=== PATIENT | male | born 1945 | race Caucasian/White ===

== ENCOUNTER 2022-02-06 11:32 | Outpatient (CLI) | payer MEDICARE, SELFPAY ==
[2022-02-06 22:11] LABS: Albumin* 4.7 g/dL (3.3-5.0); Chloride* 98 mmol/L (96-114); Sodium* 136 mmol/L (135-149)
[2022-02-06 22:12] LABS: Potassium* 4.3 mmol/L (3.6-5.1)
[2022-02-06 22:14] LABS: Alanine Aminotransferase* 39 U/L (4-50); Alkaline Phosphatase* 60 U/L (40-150); Aspartate Amino Transferase* 43 U/L (12-35); Bilirubin Total* 0.9 mg/dL (0.1-1.5); Blood Urea Nitrogen* 16 mg/dL (7-30); Carbon Dioxide* 26 mmol/L (20-32); Creatinine* 0.9 mg/dL (0.5-1.5); Estimated Glomerular Filt Rate 89 ml/min; Glucose* 141 mg/dL (60-115); Total Protein* 7.4 g/dL (6.0-8.3)
[2022-02-06 22:15] LABS: Calcium* 9.8 mg/dL (8.4-10.6)
== END 2022-02-06 11:33 | disposition home or self-care (01) ==
LOC: FRMREF 11:32
PROVIDERS: PCP Surgery; Visit Provider Dermatology
DX: L30.9 Dermatitis, unspecified (principal); Z79.899 Other long term (current) drug therapy
CPT/HCPCS: 80053

== ENCOUNTER 2022-03-04 05:40 | Emergency (ER) | payer MEDICARE, SELFPAY ==
[2022-03-04 06:05] VITALS: BP 172/92; PULSE 75; RESP 16; TEMP 36.4; O2SAT 98; BMI 38.4
[2022-03-04 06:31] LABS: Basophils Absolute Auto 0.03 K/uL (0.00-0.30); Basophils Percent Auto 0.3 % (0.0-3.0); Eosinophils Absolute Auto 0.14 K/uL (0.00-0.50); Eosinophils Percent Auto 1.5 % (0.0-7.0); Hematocrit 43.8 % (37.0-53.0); Hemoglobin* 14.8 gm/dL (13.5-17.5); Immature Granulocytes Abs Auto 0.04 K/uL (0.00-0.30); Lymphocytes Percent Auto 11.4 % (20-44); Mean Corpuscular HGB Conc 34 gm/dL (32-36); Mean Corpuscular Hemoglobin 35 pg (26-34); Mean Corpuscular Volume 103 fL (80-100); Monocytes Percent Auto 7.8 % (0.0-11.0); Neutrophils Percent Auto 78.6 % (42.0-72.0); Platelet Count* 288 K/uL (140-440); RDW Coefficient of Variation % 14.2 % (11.5-15.5); Red Blood Count 4.26 m/uL (4.30-5.90); White Blood Count* 9.29 K/uL (4.50-11.00)
--- NOTE | 2022-03-04 06:34 | ED_ITS ---
HPI - Abdominal Pain General Time Seen by Provider: 06:34 Date Seen: 03/04/22 Chief Complaint: Abdominal Pain Stated Complaint: Severe abdominal pain Time Seen by Provider: 03/04/22 05:48 Source: patient, family, RN notes reviewed and old records reviewed Mode of arrival: ambulatory Limitations: no limitations History of Present Illness HPI narrative: Patient is a very pleasant 76-year-old gentleman with a history of hyperlipidemia, hypertension, obesity, appendectomy comes to the emergency room with right lower quadrant pain. Patient notes the sudden onset of this discomfort shortly after midnight. He has not taken anything for pain at this point. It is not associated with diarrhea but he does have some mild nausea. He notes that he has had some constipation over the past 3-4 weeks and has been treating that with senna and MiraLax. It has helped somewhat. He denies any trauma, recent illness, cough cold congestion. Walking seems to irritate the p ain. Related Data Home Medications Medication Instructions Recorded Confirmed aspirin 81 mg tablet,delayed 81 mg PO QDAY 02/06/22 03/04/22 release cetirizine 10 mg tablet (Zyrtec) 10 mg PO QDAY PRN 02/06/22 03/04/22 fluocinonide 0.05 % topical cream 1 applic topical BID 02/06/22 03/04/22 fluticasone propionate 50 1 spray intranasal QDAY 02/06/22 03/04/22 mcg/actuation nasal spray,suspension (Allergy Relief (fluticasone)) glimepiride 4 mg tablet 4 mg PO QAM 02/06/22 03/04/22 hydrochlorothiazide 25 mg tablet 25 mg PO QDAY 02/06/22 03/04/22 lansoprazole 15 mg capsule,delayed 15 mg PO QDAY 02/06/22 03/04/22 release latanoprost 0.005 % eye drops 1 drp ophthalmic (eye) QDAY 02/06/22 02/06/22 lisinopril 40 mg tablet 40 mg PO QDAY 02/06/22 03/04/22 metformin 1,000 mg tablet 1,000 mg PO BID 02/06/22 03/04/22 methotrexate sodium 2.5 mg tablet 2.5 mg PO QWEEK 02/06/22 03/04/22 simvastatin 20 mg tablet 20 mg PO QDAY 02/06/22 03/04/22 timolol 0.25 % eye drops 1 drp ophthalmic (eye) QDAY 02/06/22 03/04/22 zinc acetate 50 mg (zinc) capsule 50 mg PO QDAY 02/06/22 03/04/22 (Galzin) Previous Rx's Medication Instructions Recorded methotrexate sodium 2.5 mg tablet 20 mg PO QWEEK #32 tabs 02/06/22 Allergies Allergy/AdvReac Type Severity Reaction Status Date / Time No Known Drug Allergies Allergy Verified 02/06/22 11:24 Review of Systems Status of ROS Reports: 10 or more systems reviewed and unremarkable except as noted in History and below Const Denies: fever or chills Eyes Denies: change in vision ENMT Denies: throat pain or difficulty swallowing Cardio Denies: chest pain, palpitations or shortness of breath with exertion Resp Denies: shortness of breath or cough GI Reports: abdominal pain, nausea and constipation; Denies: vomiting, diarrhea, difficulty swallowing or blood in stool Denies: painful urination Musculo Denies: back pain Integ/Breast Denies: rash Neuro Denies: weakness in extremities [facility] Medical History Adenomatous colon polyp Benign prostatic hyperplasia without lower urinary tract symptoms Diastasis recti Eczema Essential (primary) hypertension Hyperlipidemia Obesity YARA (obstructive sleep apnea) Type 2 diabetes mellitus Unspecified glaucoma Venous insufficiency (chronic) (peripheral) Exam Narrative: Exam Narrative: Patient is alert and oriented. Nontoxic in appearance. Oral cavity with moist mucous membranes. Dentition is poor. Neck is supple. Heart with regular rate and rhythm and lungs are clear bilaterally. Abdomen is protuberant obese it is soft. He has some mild tenderness with palpation in the right lower quadrant. No rebound tenderness. Straight leg raise is negative. Lower extremities with 1+ edema. Const: Vital Signs, click to edit/add: Vital Signs - 24 hr 03/04/22 06:05 03/04/22 06:57 03/04/22 06:46 Temperature 97.6 F Pulse Rate [Left P ulse Oximeter] 75 Respiratory Rate 16 Blood Pressure [Le ft Upper Arm] 172/92 H Pulse Oximetry 98 94 97 Oxygen Delivery Me thod Room Air Room Air Oxygen Flow Rate 2 Course Course Hospital Course: Patient will have IV placed and pain medications including morphine 4 mg Zofran 4 mg and 1 L of normal saline given. Comprehensive panel, CBC, CRP, amylase, lipase ordered at this time. Urinalysis is also ordered. Differential diagnosis does include but is not limited to ureteral colic, kidney stone, diverticulitis, bowel obstruction, volvulus, urinary tract infection. Reevaluation(s) Reevaluation #1: Patient noted to have only mild relief with morphine. Will give him Dilaudid 0.5 mg IV. Vital Signs Vital signs: Initial Vital Signs Temperature 97.6 F 03/04/22 06:05 Temperature Source Temporal Artery Scan 03/04/22 06:05 Pulse Rate 75 03/04/22 06:05 Pulse Rhythm 03/04/22 06:05 Respiratory Rate 16 03/04/22 06:05 Blood Pressure 172/92 H 03/04/22 06:05 Blood Pressure Mean 118 03/04/22 06:05 Blood Pressure Position Standing 03/04/22 06:05 Pulse Oximetry 98 03/04/22 06:05 Oxygen Delivery Method 03/04/22 06:05 Vital Signs Temperature 97.6 F 03/04/22 06:05 Pulse Rate 75 03/04/22 06:05 Respiratory Rate 16 03/04/22 06:05 Blood Pressure 172/92 H 03/04/22 06:05 Pulse Oximetry 98 03/04/22 06:05 Oxygen Delivery Method 03/04/22 06:05 Temperature 97.6 F 03/04/22 06:05 Pulse Rate 75 03/04/22 06:05 Respiratory Rate 16 03/04/22 06:05 Blood Pressure 172/92 H 03/04/22 06:05 Pulse Oximetry 94 03/04/22 06:57 Oxygen Delivery Method 03/04/22 06:57 Oxygen Flow Rate 2 03/04/22 06:57 MDM - Abdominal Pain MDM Narrative Medical decision making narrative: 1. Abdominal pain-at this time awaiting CT of the abdomen. This case will be signed out to my partner Dr. Gregorio Saldivar for disposition. White count reassuring at 9.29 Medical Records Attestation: I reviewed the patient's medical records. Lab Data Attestation: I reviewed the patient's lab results. Labs: Lab Results 03/04/22 03/04/22 Range/Units 06:14 06:14 WBC 9.29 (4.50-11.00) K/uL RBC 4.26 L (4.30-5.90) m/uL Hgb 14.8 (13.5-17.5) gm/dL Hct 43.8 (37.0-53.0) % MCV 103 H (80-100) fL MCH 35 H (26-34) pg MCHC 34 (32-36) gm/dL RDW Coeff of Crissy 14.2 (11.5-15.5) % Plt Count 288 (140-440) K/uL Neut % (Auto) 78.6 H (42.0-72.0) % Lymph % (Auto) 11.4 L (20-44) % [place] % (Auto) 7.8 (0.0-11.0) % Eos % (Auto) 1.5 (0.0-7.0) % Baso % (Auto) 0.3 (0.0-3.0) % Neut # (Auto) 7.30 H (1.7-7.0) K/uL Lymph # (Auto) 1.10 (0.90-2.90) K/uL [place] # (Auto) 0.70 (0.00-0.90) K/UL Eos # (Auto) 0.14 (0.00-0.50) K/uL Baso # (Auto) 0.03 (0.00-0.30) K/uL Abs Immat Gran (auto) 0.04 (0.00-0.30) K/uL Sodium 138 (135-149) mmol/L Potassium 4.5 (3.6-5.1) mmol/L Chloride 99 (96-114) mmol/L Carbon Dioxide 26 (20-32) mmol/L BUN 13 (7-30) mg/dL Creatinine 1.1 (0.5-1.5) mg/dL Estimated Creat Clear 61.80 Estimated GFR 70 ml/min Glucose 209 H (60-115) mg/dL Calcium 10.1 (8.4-10.6) mg/dL Discharge Plan Discharge Prescriptions: No Action methotrexate sodium 2.5 mg tablet 2.5 mg PO QWEEK lisinopril 40 mg tablet 40 mg PO QDAY hydrochlorothiazide 25 mg tablet 25 mg PO QDAY simvastatin 20 mg tablet 20 mg PO QDAY cetirizine [Zyrtec] 10 mg tablet 10 mg PO QDAY PRN fluticasone propionate [Allergy Relief (fluticasone)] 50 mcg/actuation spray,suspension 1 spray intranasal QDAY Rx Instructions: administer into each nostril fluocinonide 0.05 % cream 1 applic topical BID aspirin 81 mg tablet,delayed release (DR/EC) 81 mg PO QDAY metformin 1,000 mg tablet 1,000 mg PO BID lansoprazole 15 mg capsule,delayed release(DR/EC) 15 mg PO QDAY latanoprost 0.005 % drops 1 drp ophthalmic (eye) QDAY timolol 0.25 % drops 1 drp ophthalmic (eye) QDAY glimepiride 4 mg tablet 4 mg PO QAM Rx Instructions: administer with breakfast Galzin 50 mg (zinc) capsule 50 mg PO QDAY methotrexate sodium 2.5 mg tablet 20 mg PO QWEEK Qty: 32 2RF Rx Instructions: Take 8 tabs one day per week. Follow Up/Referrals: Fuad Leonard MD [Primary Care Provider] -
[2022-03-04] MEDS: 0.9 % SODIUM CHLORIDE 1000 ml 1,000 ML IV (06:43)
[2022-03-04 06:46] VITALS: O2SAT 97
[2022-03-04] MEDS: ONDANSETRON 2 MG/ML inj 4 MG IVP (06:47)
[2022-03-04] MEDS: MORPHINE 4 MG/ML INJ IVP (06:47)
[2022-03-04 06:51] LABS: Chloride* 99 mmol/L (96-114); Potassium* 4.5 mmol/L (3.6-5.1); Sodium* 138 mmol/L (135-149)
--- OUTSIDE RECORDS SUMMARY | 2022-03-04 06:51 | XMS_ITS | Clinical Summary ---
:1945 Author Organization [employer] [facility] [place] [address] Care Team Providers Name Role Phone Fuad Leonard MD Primary Care Provider Allergies Active Allergy Reactions Severity Noted Date Comments Pollen Extracts Runny Nose 05/08/2021 Medications Medication Sig Dispensed Refills Start End Status Date Date MULTIVITAMIN CAP take one pill 0 01/17/20 Active daily 07 cetirizine (ZYRTEC) 10 Take 1 tablet 0 06/29/19 Active mg tablet by mouth once 10 daily. PRN sennosides (SENNA) 8.6 Take 2 tablets 0 06/29/20 Active mg tablet by mouth 2 10 times daily. Cholecalciferol, Take 1 tablet 0 06/09/19 Active Vitamin D3, (VITAMIN by mouth once 14 D-3) 5,000 unit tab daily. latanoprost (XALATAN) 1 Drop at 2.5 mL 0 07/12/19 Active 0.005 % ophthalmic bedtime. 17 solution fluticasone (50 mcg Inhale 1 [place] 1 Bottle 3 07/12/19 Active per actuation) nasal into both 18 solution nostrils once (FLONASE)Indications: daily. Allergic rhinitis due to pollen, unspecified chronicity, unspecified seasonality fluocinonide 0.05 APPLY 3 TIMES 5 08/30/19 Active TOPICAL (LIDEX) 0.05 % A DAY 18 external solution NEEDED dorzolamide-timolol INSTILL 1 DROP 4 04/01/20 Active (COSOPT) 2-0.5 % INTO BOTH EYES 18 ophthalmic solution TWICE A DAY aspirin (ECOTRIN) 81 Take 1 tablet 0 01/20/20 Active mg enteric coated by mouth once 19 tabletIndications: daily with a Type 2 diabetes meal. mellitus with microalbuminuria, without long-term current use of insulin (HC) CPAPIndications: YARA CPAP machine 1 Device 11 05/14/20 Active (obstructive sleep for home use 19 apnea) at pressure: 8.6 cm/H2O with epr of 3 , Heated humidifier x 1, Humidifier chamber x 1, Full face mask with cushion x 1, standard tubing x 1, Headgear x 1, Filters: Disposable x 1pk & Reusable x 1pk, Length of Need: 99 months, Frequency of use: Daily triamcinolone 0.025% 0 03/21/20 Active topical (ARISTOCORT) 21 0.025 % cream simvastatin (ZOCOR) 20 Take 1 Tablet 90 Tablet 3 08/11/19 Active mg tabletIndications: (20 mg) by 22 Hyperlipidemia, mouth once unspecified daily in the hyperlipidemia type evening. blood sugar diagnostic Dispense item 200 Each 08/11/19 Active (Debteyeuch Ultra Test) covered by pt 22 stripIndications: Type ins. E11.9 2 diabetes mellitus NIDDM type II with microalbuminuria, - Test 1 without long-term time/day current use of insulin (HC) glimepiride (AMARYL) 4 TAKE 1 TABLET 90 Tablet 2 09/30/19 Active mg tabletIndications: DAILY WITH A 22 Type 2 diabetes MEAL mellitus with microalbuminuria, without long-term current use of insulin (HC) lisinopriL (PRINIVIL; TAKE 1 TABLET 90 Tablet 2 09/30/19 Active ZESTRIL) 40 mg DAILY 22 tabletIndications: Essential hypertension hydroCHLOROthiazide TAKE 1 TABLET 90 Tablet 2 10/28/19 Active (HCTZ) 25 mg DAILY 22 tabletIndications: Essential hypertension metFORMIN (GLUCOPHAGE) Take 1 Tablet 180 Tablet 3 11/22/19 Active 1,000 mg (1,000 mg) by 22 tabletIndications: mouth in the Type 2 diabetes morning and 1 mellitus with Tablet (1,000 microalbuminuria, mg) in the without long-term evening. Take current use of insulin with meals. (HC) methotrexate TAKE 10 0 11/15/19 Active (RHEUMATREX) 2.5 mg TABLETS BY 22 tablet MOUTH EVERY 7 DAYS tacrolimus 0.1% 0 03/24/20 Disc ontinued (PROTOPIC) 0.1 % (*P atient ointment states no longer taking/Not on sending facility l ist) HYDROcodone-acetaminop 0 02/01/20 Discontinued hen (NORCO) 5-325 mg (*Patient per tablet states no longer taking/Not on sending facility l ist) polyethylene Take 4,000 mL 4000 mL 0 03/01/20 Exp ired glycol-electrolyte by mouth one 022 (GOLYTELY) time for 1 236-22.74-6.74 -5.86 dose. 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 Hyperlipidemia 12/22/2013 Diastasis recti 12/04/2011 Unspecified venous (peripheral) insufficiency 12/04/19 12 Eczema 12/12/2010 Obesity, unspecified 12/12/2010 Hypertrophy of prostate without urinary obstruction an d other lower 06/19/2010 urinary tract symptoms (LUTS) Unspecified glaucoma 01/02/2010 Unspecified essential hypertension 01/30/2007 Unspecified sleep apnea 01/30/2007 Resolved Problems Problem Noted Date Resolved Date Anal fissure 06/19/2010 12/22/2013 Pure hypercholesterolemia 01/30/2007 12/22/2013 Type II or unspecified type diabetes mellitus without 200501/10/2016 mention of complication, not stated as uncontrolled Encounters Date Type Specialty Care Team Description 02/26/2022 Office Visit Fuad Leonard Medicar e ANNUAL (subsequent) MD Visit (76 yr ol d male) 02/26/2022 Travel from Last 3 Months Immunizations Name Administration Dates Next Due AMB INFLUENZA IIV3 (AGE 65+ YRS) PF 03/14/2019, 03/08/2017 (Flu Clinic Only) AMB Influenza, IIV3 (Age >=3 03/25/2013, 03/16/2011, 010, years)(Flu Clinic Only) 03/04/2009 Amb Influenza, Inact (High-dose) (Flu 03/08/2016 Clinic Only) COVID-19 vaccine (Moderna 08/25/2020, 07/28/2020 100mcg/0.5mL) PF, MDV Influenza A (H1N1), Inactivated (Age 0206/29/2009 >=3 Years) Influenza, High-dose Inactivated 02/25/2015, 02/19/2014 Influenza, IIV3 (Age >=3 years) 04/10/2012, 03/30/2008 Influenza, IIV4 (=>6mos) MDV 01/24/2018 Influenza, Inactivated AIIV4 (Age 65+ 01/31/2021 Years) Preserv Free Influenza, Inactivated IIV3 (Age 65+ 02/25/2020 Years) Preserv Free Pneumococcal Poly,23-Valent 06/22/2014, 07/20/2008 (Pneumovax) Pneumococcal conj 13-Valent (Prevnar 06/27/2015 13) Tdap 07/12/2015 Zoster (Shingrix-RZV, recombinant) 03/28/2019, 01/07/2019 Zoster (Zostavax-ZVL, live) 08/01/2011 Family History Medical History Relation Name Comments Pulmonary embolism Father at 49 Cancer-breast Mother Heart failure Mother at 89 Cancer-colon No Family History Cancer-prostate No Family History Diabetes No Family History Relation Name Status Comments Father (Age 49) PE Mother (Age 89) CHF Social History Tobacco Use Types Packs/Day Years Used Date Former Smoker Pipe Smokeless Tobacco: Never Used Tobacco Cessation: Counseling Given: Yes Comments: pipe maybe once or twice a yea r Alcohol Use Standard Drinks/Week Comments Yes 14 (1 standard drink = 0.6 oz pure alcoh ol) couple drinks/beers a day Alcohol Habits Answer Date Recorded How often do you have a drink containing 4 or more times a w lower elwha 10/21/2018 alcohol? How many drinks containing alcohol do you have 1 or 2 10/21/2018 on a typical day when you are drinking? How often do you have six or more drinks on one Never 10/21/2018 occasion? Comment: Not asked Sex Assigned at Date Recorded Not on file COVID-19 Exposure Response Date Recorded In the last 10 days, have you been in contact with No / Unsu re 02/26/2022 12:59 PM CDT someone who was confirmed or suspected to have Coronavirus/COVID-19? Obstetrics History Last Filed Vital Signs Vital Sign Reading Time Taken Comments Blood Pressure 125/83 02/26/2022 1:20 PM CDT Pulse 77 02/26/2022 1:20 PM CDT Temperature 37 ??C (98.6 ??F) 10/27/2020 11:12 AM CDT Respiratory Rate 16 04/07/2018 1:43 PM [employer]PER[employer] HELPER Oxygen Saturation 97% 02/26/2022 1:20 PM CDT Inhaled Oxygen Concentration - - Weight 124.5 kg (274 lb 6.4 oz) 02/26/2022 1:20 PM CDT Height 179.8 cm (5' 10.79) 02/26/2022 1:20 PM CDT Body Mass Index 38.5 02/26/2022 1:20 PM CDT Plan of Treatment Upcoming Encounters Date Type Specialty Care Team Description 05/31/2022 Office Visit Fuad Leonard MD [address] [place], [place] [address] (Wo rk) Health Maintenance Due Date Last Done Comments COVID-19 vaccine series (5 - 01/10/2022 11/15/2021, 021, Booster for Moderna series) 08/25/2020, Addition al history exists Influenza for age 65+ 01/25/2022 01/31/2021, 02/25/2020, 03/14/2019, Additional history exists Colonoscopy through age 75 02/05/2022 02/05/2017, 7, 02/05/2017, Additional history exists BMI (ht and wt on same day) for 02/26/2023 02/26/2022, 09/11/2020, age 18+ 07/21/2020, Additional history exists Depression screening for age 12+ 02/26/2023 02/26/2022, 11/2020, 01/30/2021, Additional history exists Medicare Wellness for age 65+ 02/26/2023 02/26/2022, 2020, 01/11/2020, Additional history exists Tetanus booster 07/12/2025 07/12/2015, 01/02/2006 Lipids for age 45-75 02/26/2027 02/26/2022, 01/31/2021, 01/11/2020, Additional history exists Pneumococcal series for age 65+ Completed 06/27/2015, 05/28, 12/01/2008 (Completed outside of [facility]), Additional history exists Tdap Completed 07/12/2015, 07/12/2015 Hepatitis C screening for age Completed 01/10/2017 18-79 AAA screening age 55-77 Completed 01/27/2019 Zoster (shingles) series for age Completed 03/28/2019, , 50+ 08/01/2011 Procedures Procedure Name Priority Date/Time Associated Diagnosis Comme nts URINE ALBUMIN TO Routine 02/26/2022 1:11 PM Type 2 diabetes Re sults for this CREATININE RATIO, CDT mellitus with procedure are in RANDOM microalbuminuria, the result s without long-term section. current use of insulin (HC) PSA TOTAL SCREEN Add On 02/26/2022 1:09 PM Screening for pros andrea Results for this CDT cancer procedure are i n the results section. BASIC METABOLIC Routine 02/26/2022 1:09 PM Essential hypertens ion Results for this PANEL CDT procedure are i n the results section. LIPID PANEL Routine 02/26/2022 1:09 PM Hyperlipidemia, Result s for this CDT unspecified procedure are i n hyperlipidemia type the resu lts section. HEMOGLOBIN A1C Routine 02/26/2022 1:09 PM Type 2 diabetes Resu lts for this CDT mellitus with procedure are in microalbuminuria, the result s without long-term section. current use of insulin (HC) from Last 3 Months Results (ABNORMAL) URINE ALBUMIN TO CREATININE RATIO, RANDOM (02/26/2022 1:11 PM CDT) [facility] gist Method Time Signature ALB RAND URINE 251.9 mg/L 02/27/2022 [facility] 1:26 PM CDT [facility] CREATININE,URIN 1.03 g/L 02/27/2022 [facility] 1:26 PM CDT [facility] ALBUMIN TO 244.6 (H) <30.0 02/27/2022 [facility] CREATININE mg/g 1:26 PM CDT LAB[facility]ATORY-[facility] RATIO,RAND UR creat TRAL LABORATORY Specimen Anatomical Collection Method Collection Time Receive d Time (Source) Location / / Volume Laterality Urine URINE SPECIMEN / Non-Blood / 02/26/2022 1:11 PM 02/26 1:11 Unknown Unknown CDT PM CDT Narrative [facility] LABORATORY-CENTRAL LABORAT ORY - 02/27/2022 1:26 PM CDT If Albumin to Creatinine Ratio is elevated, consider the following: ? Elevations seen with incipient nephr opathy associated ?? with diabetes mellitus or hypertensi on. Stress, exercise, ?? hematuria, and urinary tract infecti on may also produce ?? elevated results. If clinically marc cated, confirm with ?? 24 Hour Albumin to Creatinine Ratio. Fuad Leonard MD URINE Performing Organization Address City/State/ZIP Code Phon e Number [facility] [address] [place] [address] LABORATORY-CENTRAL 2000 LABORATORY (ABNORMAL) HEMOGLOBIN A1C MONITORING (POCT) (02/26/2022 1:09 PM CDT) Analysis Performed At Patho logist Time Signature HEMOGLOBIN A1C 6.7 (H) <=6.4 % 02/26/2022 [facility] MONITORING 1:19 PM CDT [place] (POCT) [facility] Specimen Anatomical Collection Method / Collection Time Recei emperatriz Time (Source) Location / Volume Laterality Blood BLOOD SPECIMEN / Venipuncture / 02/26/2022 1:09 2021 1:10 Unknown Unknown PM CDT PM CDT Narrative [facility] - 2021 1:19 PM CDT ? (<=6.9%) ? Indicates good control ? (7.0% to 7.9%) ? Indicates fa ir control ? (>=8.0%) ? Indicates poor control ?? NOTE: ??These thresholds are guideli bianca and ?individual targets may va ry. Falsely low levels may be seen with: Recent Transfusion, Recent Significant B lood Loss, Hemolytic Diseases, or Falsely elevated levels may be seen with : Untreated Anemias, Splenectomy ? Fuad Leonard MD CHEMISTRY Performing Organization Address City/State/ZIP Code Phon e Number [facility] [address] [place] [address] (ABNORMAL) LIPID PANEL (02/26/2022 1:09 PM CDT) [facility] gist Method Time Signature CHOLESTEROL,TOTAL 128 100 - 199 02/27/2022 [facility] mg/dL 2:00 PM CDT [facility] TRIGLYCERIDES 185 (H) <150 02/27/2022 [facility] mg/dL 2:00 PM CDT [facility] HDL CHOLESTEROL 45 >40 mg/dL 02/27/2022 [facility] 2:00 PM CDT [facility] NON-HDL 83 <145 02/27/2022 [facility] CHOLESTEROL mg/dl 2:00 PM CDT [facility] CHOL/HDL RATIO 2.84 <4.50 02/27/2022 [facility] 2:00 PM CDT [facility] LDL CHOLESTEROL 46 <=130 02/27/2022 [facility] mg/dL 2:00 PM CDT [facility] VLDL CHOLESTEROL 37 (H) <=30 02/27/2022 [facility] mg/dL 2:00 PM CDT [facility] PROVIDER ORDERED RANDOM 02/27/2022 [facility] STATUS 2:00 PM CDT [facility] Specimen Anatomical Collection Method / Collection Time Recei emperatriz Time (Source) Location / Volume Laterality Blood BLOOD SPECIMEN / Venipuncture / 02/26/2022 1:09 2021 1:10 Unknown Unknown PM CDT PM CDT Fuad Leonard MD CHEMISTRY Performing Organization Address City/State/ZIP Code Phon e Number [facility] [address] [place] [address] LABORATORY-CENTRAL 2000 LABORATORY [facility] [address] [place], [place] [address] , CLINIC (ABNORMAL) BASIC METABOLIC PANEL (02/26/2022 1:09 PM CDT) Analysis Performed At Path logist Time Signature SODIUM 139 135 - 145 02/27/2022 [facility] mmol/L 1:58 PM CDT [facility] POTASSIUM 4.1 3.5 - 5.0 02/27/2022 [facility] mmol/L 1:58 PM CDT [facility] CHLORIDE 102 98 - 110 02/27/2022 [facility] mmol/L 1:58 PM CDT [facility] CO2,TOTAL 26 21 - 31 02/27/2022 [facility] mmol/L 1:58 PM CDT [facility] ANION GAP 11 5 - 18 02/27/2022 [facility] 1:58 PM CDT [facility] GLUCOSE 154 (H) 65 - 100 02/27/2022 [facility] mg/dL 1:58 PM CDT [facility] CALCIUM 9.8 8.5 - 10.5 02/27/2022 [facility] mg/dL 1:58 PM CDT [facility] BUN 13 8 - 25 02/27/2022 [facility] mg/dL 1:58 PM CDT [facility] CREATININE 0.88 0.72 - 02/27/2022 [facility] 1.25 mg/dL 1:58 PM CDT [facility] BUN/CREAT RATIO 15 10 - 20 02/27/2022 [facility] 1:58 PM CDT [facility] eGFR 90 (L) >90 02/27/2022 [facility] mL/min/1.7 1:58 PM CDT LAB[facility]ATORY-[facility] 3m2 TRAL LABORATORY Comment: As of 2021, eGFR is calcu lated by the CKD-EPI creatinine equation without race adjustment. eGFR can be inf luenced by muscle mass, exercise, and diet. The reported eGFR is an estimation only and is only applicable if the renal function is stable. Specimen Anatomical Collection Method / Collection Time Recei emperatriz Time (Source) Location / Volume Laterality Blood BLOOD SPECIMEN / Venipuncture / 02/26/2022 1:09 2021 1:10 Unknown Unknown PM CDT PM CDT Fuad Leonard MD CHEMISTRY Performing Organization Address City/State/ZIP Code Phon e Number [facility] [address] [place] [address] LABORATORY-CENTRAL 2000 LABORATORY PSA TOTAL SCREEN (02/26/2022 1:09 PM CDT) P athologist Signature PSA TOTAL 2.36 <4.00 02/27/2022 [facility] (SCREEN) ng/mL 2:21 PM CDT LABORATORY-[facility] LABOR[facility]ORY Specimen Anatomical Collection Method / Collection Time Recei emperatriz Time (Source) Location / Volume Laterality Blood BLOOD SPECIMEN / Venipuncture / 02/26/2022 1:09 2021 1:10 Unknown Unknown PM CDT PM CDT Narrative [facility] LABORATORY-CENTRAL LABORAT ORY - 02/27/2022 2:21 PM CDT The Self Under Presser PSA assay is a Chemiluminescent Microparticle Immunoassay(CMIA). Assay values ob tained with different assay methods carlos ot be used interchangeably due to differences in assay methods and reagent specificity. Fuad Leonard MD LABORATORY Performing Organization Address City/State/ZIP Code Phon e Number [facility] [address] [place] [address] LABORATORY-CENTRAL [address] LABORATORY from Last 3 Months Insurance Payer Benefit Plan / Subscriber ID Effective Dates Phone Addre ss Type Group MEDICA MR MEDICA ADVANTAGE [id number] 2020-Present MEDIC A [place] [employer] [address] [address] [place] [phone] Care Teams Bone Char Puller Relationship Specialty Start Date End Date Fuad Leonard MD PCP - General Family Practice 01/04/[address] [place] [address]
[2022-03-04 06:54] LABS: Blood Urea Nitrogen* 13 mg/dL (7-30); Calcium* 10.1 mg/dL (8.4-10.6); Carbon Dioxide* 26 mmol/L (20-32); Creatinine* 1.1 mg/dL (0.5-1.5); Estimated Glomerular Filt Rate 70 ml/min; Glucose* 209 mg/dL (60-115)
[2022-03-04 06:57] VITALS: O2SAT 94
[2022-03-04 06:59] LABS: Slide Review Reflex No
[2022-03-04 07:56] LABS: Appearance Urine Slightly Cloudy (Clear); Bilirubin Urine Negative (Negative); Blood Urine 3+ (Negative); Color Urine Amber (Yellow); Glucose Urine Trace (Negative); Ketones Urine 2+ (Negative); Leukocyte Esterase Urine Negative (Negative); Nitrite Urine Negative (Negative); Protein Urine 2+ (Negative); Specific Gravity Urine >= 1.030 (1.000-1.030); Urobilinogen Urine 0.2 (0.2-1.0); pH Urine 5.5 (5.0-8.5)
--- NOTE | 2022-03-04 08:15 | CRLHL7_ITS ---
For Patients: As a result of the Century Cures Act, medical imaging exams and procedure reports are released immediately into your electronic medical record. You may view this report before your referring provider. If you have questions, please contact your health care provider. Indication: Right lower quadrant pain Technique: Noncontrast CT of the abdomen pelvis Please note that all CT scans at this facility use dose modulation, iterative reconstruction, and/or weight-based dosing when appropriate to reduce radiation dose to as low as reasonably achievable. Comparison: None Findings: Normal heart size. Pericardial effusion. Bibasilar. Unremarkable liver and gallbladder. No significant abnormality of the adrenal glands, spleen, pancreas or duodenum. Simple left renal cysts. Mild right-sided hydronephrosis. There is a 6 millimeter right ureteral calculus (series 2, image 105). Normal course and caliber of the abdominal aorta and IVC. Moderate atherosclerotic disease of the abdominal aorta. No lymphadenopathy. Prostate is enlarged. Bladder is unremarkable. Diverticulosis without diverticulitis. No bowel obstruction. No bowel wall thickening. Small fat containing bilateral inguinal hernias. No acute osseous abnormality. Impression: There is a 6 millimeter mid right ureteral calculus with associated mild right-sided hydronephrosis. Please note that all CT scans at this facility use dose modulation, iterative reconstruction, and/or weight-based dosing when appropriate to reduce radiation dose to as low as reasonably achievable. Dictated by Corey Spencer MD @ 03/04/2022 9:10:16 AM (Electronically Signed)
[2022-03-04 08:36] LABS: Bacteria Urine Few; RBC Urine 50-100 (0-2); Squamous Epithelial Cell Urine Few (None-Few); WBC Urine 0-2 (0-5)
[2022-03-04] MEDS: HYDROmorphone 0.5 mg/0.5 ml inj IVP (08:40)
[2022-03-04 09:15] VITALS: BP 168/82; PULSE 72; RESP 18; TEMP 36.6; O2SAT 94
[2022-03-04 16:07] LABS: Albumin* 4.7 g/dL (3.3-5.0)
[2022-03-04 16:09] LABS: Amylase* 70 U/L (18-89)
[2022-03-04 16:10] LABS: Alanine Aminotransferase* 34 U/L (4-50); Alkaline Phosphatase* 60 U/L (40-150); Aspartate Amino Transferase* 45 U/L (12-35); Bilirubin Direct* 0.2 mg/dL (0.0-0.5); Bilirubin Total* 0.6 mg/dL (0.1-1.5); Lipase* 161 U/L (23-300); Total Protein* 7.9 g/dL (6.0-8.3)
[2022-03-04 16:15] LABS: C Reactive Protein* < 0.5 mg/dL (0.5-1.0)
== END 2022-03-04 10:04 | disposition home or self-care (01) ==
PROVIDERS: Family Medicine; Emergency Provider Family Medicine; PCP Surgery
DX: R10.9 Unspecified abdominal pain (principal); R11.0 Nausea
CPT/HCPCS: 36415; 74176; 80048; 80053; 80076; 81001; 82150; 83605; 83690; 85025; 86140; 87086; 94761; 96374; 96375; 99284; J1170; J2270; J2405; J7030

== ENCOUNTER 2022-03-08 08:52 | Outpatient (CLI) | payer MEDICARE, SELFPAY ==
--- OUTSIDE RECORDS SUMMARY | 2022-03-08 09:00 | XMS_ITS | Clinical Summary ---
:1945 Author Organization [employer] [place] [address] Care Team Providers Name Role Phone Fuad [...] 17 solution fluticasone (50 mcg Inhale 1 [place] 1 Bottle 3 07/12/19 Active per actuation) [...] blood sugar diagnostic Dispense item 200 Each 3 08/11/19 Active ([employer] plcuch Ultra Test) covered by pt 22 stripIndications: [...] BY 22 tablet MOUTH EVERY 7 DAYS ondansetron (ZOFRAN) 4 TAKE 1 TABLET 0 03/04/20 Active mg tablet BY MOUTH EVERY 22 6 HOURS NEEDED FOR NAUSEA OR VOMITING oxyCODONE-acetaminophe Take by mouth 0 03/04/20 Active n (PERCOCET) 5-325 mg every 6 hours 22 per tablet if needed. tamsulosin (FLOMAX) TAKE 1 CAPSULE 0 03/04/20 Active 0.4 mg capsule BY MOUTH DAILY 22 FOR URETERAL COLIC tacrolimus 0.1% 0 03/24/20 Disc ontinued (PROTOPIC) 0.1 % 022 (*P atient ointment states no longer taking/Not on sending facility l ist) HYDROcodone-acetaminop 0 02/01/20 Discontinued hen (NORCO) 5-325 mg 21 022 (*Patient per tablet states no longer taking/Not [...] Encounters Date Type Specialty Care Team Description 03/07/2022 Office Visit Deanne Bennett Consti pation PA (Saturday/ y morning- started to loss en up ); Hospital F/U (1 0 ER [facility] ) 03/06/2022 Travel 03/06/2022 Nurse Triage Fuad Leonard MD Cons tipation 03/06/2022 Telephone Fuad Leonard MD [facility] Management 03/04/2022 Orders Only Scanner <No scans attac hed> 02/26/2022 Office Visit Fuad Leonard MD [facility] ANNUAL (subsequent) Visit (76 yr ol d male) 02/26/2022 [...] containing 4 or more times a w [place] 10/21/2018 alcohol? How many drinks containing alcohol [...] in contact with No / Unsu re 03/06/2022 9:17 PM CDT someone who was confirmed or suspected to have Coronavirus/COVID-19? Obstetrics History Last Filed Vital Signs Vital Sign Reading Time Taken Comments Blood Pressure 160/90 03/07/2022 8:51 AM CDT Pulse 86 03/07/2022 8:51 AM CDT Temperature 36.7 ??C (98 ??F) 03/07/2022 8:51 AM CDT Respiratory Rate 16 04/07/2018 1:43 PM INSURANCE CASE MANAGER Oxygen Saturation 96% 03/07/2022 8:51 AM CDT Inhaled Oxygen Concentration - - Weight 126.6 kg (279 lb) 03/07/2022 8:51 AM CDT Height 179.8 cm (5' 10.79) 02/26/2022 1:20 PM CDT Body Mass Index 39.15 02/26/2022 1:20 PM CDT Plan of Treatment Upcoming Encounters Date Type Specialty Care Team Description 05/31/2022 Office Visit Fuad Leonard MD [address] [phone] (Wo rk) Health Maintenance Due Date Last Done Comments COVID-19 vaccine series (5 - 01/10/2022 11/15/2021, 021, Booster for Moderna series) 08/25/2020, Addition al history exists Influenza for age 65+ 01/25/2022 01/31/2021, 02/25/2020, 03/14/2019, Additional history exists Colonoscopy through age 75 02/05/2022 02/05/2017, 7, 02/05/2017, Additional history exists BMI (ht and wt on same day) for 02/26/2023 02/26/2022, 0911/2020, age 18+ 07/21/2020, Additional history exists Depression screening for age 12+ 02/26/2023 02/26/2022, 11/2020, 01/30/2021, Additional history exists Medicare Wellness for age 65+ 02/26/2023 02/26/2022, 2020, 01/11/2020, Additional history exists Tetanus booster 07/12/2025 07/12/2015, 01/02/2006 Lipids for age 45-75 02/26/2027 02/26/2022, 01/31/2021, 01/11/2020, Additional history exists Pneumococcal series for age 65+ Completed 06/27/2015, 05/28, 12/01/2008 (Completed outside of [facility], [place]), Additional history exists Tdap Completed 07/12/2015, 07/12/2015 Hepatitis C screening for age Completed 01/10/2017 18-79 AAA screening age 55-77 Completed 01/27/2019 Zoster (shingles) series for age Completed 03/28/2019, , 50+ 08/01/2011 Procedures Procedure Name Priority Date/Time Associated Diagnosis Comme nts SCAN-CT INTERPRETATION 03/04/2022 12:00 AM CDT URINE ALBUMIN TO Routine 02/26/2022 1:11 Type 2 diabetes Resul ts for this CREATININE RATIO, PM CDT mellitus with procedure are in RANDOM microalbuminuria, the result s without long-term section. current use of insulin (HC) PSA TOTAL SCREEN Add On 02/26/2022 1:09 Screening for Results for this PM CDT prostate cancer procedure ar e in the results section. BASIC METABOLIC PANEL Routine 02/26/2022 1:09 Essential Res ults for this PM CDT hypertension procedure are i n the results section. LIPID PANEL Routine 02/26/2022 1:09 Hyperlipidemia, Results f or this PM CDT unspecified procedure are i n hyperlipidemia type the resu lts section. HEMOGLOBIN A1C Routine 02/26/2022 1:09 Type 2 diabetes Results for this PM CDT mellitus with procedure are in microalbuminuria, the result s without long-term section. current use of insulin (HC) from Last 3 Months Results SCAN-CT INTERPRETATION (03/04/2022 12:00 AM CDT) Narrative This result has an attachment that is no t available. Scanner OTHER (ABNORMAL) URINE ALBUMIN TO CREATININE RATIO, RANDOM (02/26/2022 1:11 PM CDT) [facility] gist Method Time Signature ALB RAND URINE 251.9 mg/L [facility] CREATININE,URIN 1.03 g/L 02/27/2022 [facility] 1:26 PM CDT [facility] ALBUMIN TO 244.6 (H) <30.0 02/27/2022 [facility] V I O CREATININE mg/g 1:26 PM CDT LABORATORY-[facility] RATIO,RAND UR creat TRAL LABORATORY Specimen Anatomical Collection Method Collection Time Receive d Time (Source) Location / / Volume Laterality Urine URINE SPECIMEN / Non-Blood / 02/26/2022 1:11 PM 02/26 1:11 Unknown Unknown CDT PM CDT Narrative [facility] LABORATORY-CENTRAL LABORAT ORY - 02/27/2022 1:26 PM [...] Organization Address City/State/ZIP Code Phon e Number [facility] [address] [place] [address] LABORATORY-CENTRAL 1999 LABORATORY (ABNORMAL) HEMOGLOBIN A1C MONITORING (POCT) (02/26/2022 1:09 PM CDT) Analysis Performed At [facility] logist Time Signature HEMOGLOBIN A1C 6.7 (H) <=6.4 % 02/26/2022 [facility] V I O MONITORING 1:19 PM CDT [place] (POCT) [facility] Specimen Anatomical Collection Method / Collection Time Recei emperatriz Time (Source) Location / Volume Laterality Blood BLOOD SPECIMEN / Venipuncture / 02/26/2022 1:09 2021 1:10 Unknown Unknown PM CDT PM CDT Narrative [facility] - 2021 1:19 PM CDT ? [...] Organization Address City/State/ZIP Code Phon e Number [facility] [address] [place], [place] [id number] (ABNORMAL) LIPID PANEL (02/26/2022 1:09 PM CDT) [facility] gist Method Time Signature CHOLESTEROL,TOTAL 128 [...] TRAL LABORATORY CHOL/HDL RATIO 2.84 <4.50 02/27/2022 [facility] 2:00 PM CDT [facility] TRAL [facility] LDL CHOLESTEROL 46 <=130 02/27/2022 [facility] mg/dL 2:00 PM CDT [facility]AT[facility] TRAL LABORATORY VLDL CHOLESTEROL 37 (H) <=30 02/27/2022 [facility] mg/dL 2:00 PM CDT [facility] TRAL LABORAT[facility] PROVIDER ORDERED RANDOM 02/27/2022 [facility] STATUS 2:00 PM CDT [facility] Specimen Anatomical Collection Method / Collection Time Recei emperatriz Time (Source) Location / Volume Laterality Blood BLOOD SPECIMEN / Venipuncture / 02/26/2022 1:09 2021 1:10 Unknown Unknown PM CDT PM CDT Fuad Leonard MD CHEMISTRY Performing Organization Address City/State/ZIP Code Phon e Number [facility] [address] [place] [address] LABORATORY-CENTRAL 2000 LABORATORY [facility] [address] [place], [place] [address], [place] [phone] CLINIC (ABNORMAL) BASIC METABOLIC PANEL (02/26/2022 1:09 PM CDT) Analysis Performed At Patho logist Time Signature SODIUM 139 135 - 145 02/27/2022 [facility] mmol/L 1:58 PM CDT [facility] TR[facility] LAB[facility]ORY POTASSIUM 4.1 3.5 - 5.0 02/27/2022 [facility] mmol/L 1:58 PM CDT [facility] TR[facility]OR[facility] CHLORIDE 102 98 - 110 02/27/2022 [facility] mmol/L 1:58 PM CDT [facility] TR[facility] CO2,TOTAL 26 21 - 31 02/27/2022 [facility] mmol/L 1:58 PM CDT [facility] TRAL LABOR[facility] ANION GAP 11 5 - 18 02/27/2022 [facility] 1:58 PM CDT [facility] TRAL LABORATORY GLUCOSE 154 (H) 65 - 100 02/27/2022 [facility] mg/dL 1:58 PM CDT [facility] TR[facility] CALCIUM 9.8 8.5 - 10.5 02/27/2022 [facility] mg/dL 1:58 PM CDT [facility] BUN 13 8 - 25 02/27/2022 [facility] mg/dL 1:58 PM CDT [facility] CREATININE 0.88 0.72 - 02/27/2022 [facility] 1.25 mg/dL 1:58 PM CDT [facility] BUN/CREAT RATIO 15 10 - 20 02/27/2022 [facility] 1:58 PM CDT [facility] TR[facility] LABORATORY eGFR 90 (L) >90 02/27/2022 [facility] V I O mL/min/1.7 1:58 PM CDT LABORATORY-[facility] 3m2 TRAL [...] Organization Address City/State/ZIP Code Phon e Number [facility] [address] [place] [id number] LABORATORY-CENTRAL 2000 LABORATORY PSA TOTAL SCREEN (02/26/2022 1:09 PM CDT) P athologist Signature PSA TOTAL 2.36 <4.00 02/27/2022 [facility] (SCREEN) ng/mL 2:21 PM CDT LABORATORY-[facility] LABORATORY Specimen Anatomical Collection Method / Collection Time Recei emperatriz Time (Source) Location / Volume Laterality Blood BLOOD SPECIMEN / Venipuncture / 02/26/2022 1:09 2021 1:10 Unknown Unknown PM CDT PM CDT Narrative [facility] LABORATORY-CENTRAL LABORAT ORY - 02/27/2022 2:21 PM CDT The [employer] PSA assay is a Chemiluminescent Microparticle Immunoassay(CMIA). Assay values ob tained with different assay methods carlos ot be used interchangeably due to differences in assay methods and reagent specificity. Fuad Leonard MD LABORATORY Performing Organization Address City[place]State[place] [facility] [place] [facility] [address] [place] [id number] LABORATORY-CENTRAL 2000 LABORATORY from Last 3 Months Insurance Payer Benefit Plan / Subscriber ID Effective Dates Phone Addre ss Type Group MEDICA MR MEDICA ADVANTAGE [id number] 2020-Present MEDIC A GOVERNMENT [place] [address] [address] [place] [phone] Care Teams Manager Placement Relationship Specialty Start Date End Date Fuad Leonard MD PCP - General Family Practice 01/04/17 [address] [place] [address]
== END 2022-03-08 08:53 | disposition home or self-care (01) ==
LOC: OP CLINIC 08:53
PROVIDERS: PCP Surgery; Visit Provider Surgery
DX: Z12.11 Encounter for screening for malignant neoplasm of colon (principal); K63.5 Polyp of colon; K57.30 Diverticulosis of large intestine without perforation or abscess without bleeding; K62.4 Stenosis of anus and rectum; Z86.010 Personal history of colon polyps
CPT/HCPCS: 45385; 88305; 99153; J1200; J2250; J3010

== ENCOUNTER 2022-05-08 08:37 | Outpatient (CLI) | payer OTHER, SELFPAY ==
--- OUTSIDE RECORDS SUMMARY | 2022-05-08 13:29 | XMS_ITS | Clinical Summary ---
:1945 Author Organization [facility] [employer] [facility] [address] Care Team Providers Name Role Phone Fuad Leonard MD Primary Care Provider Allergies Active Allergy Reactions Severity Noted Date Comments Pollen Extracts Runny Nose 05/08/2021 Medications Medication Sig Dispensed Refills Start Date End Date Status MULTIVITAMIN CAP take one pill 0 01/16/2007 Active daily cetirizine (ZYRTEC) 10 mg Take 1 tablet 0 06/29/2009 Active tablet by mouth once daily. PRN sennosides (SENNA) 8.6 mg Take 2 tablets 0 0 Active tablet by mouth 2 times daily. Cholecalciferol, Vitamin Take 1 tablet 0 06/09/2013 Active D3, (VITAMIN D-3) 5,000 by mouth once unit tab daily. latanoprost (XALATAN) 1 Drop at 2.5 mL 0 07/12/2016 Active 0.005 % ophthalmic bedtime. solution fluticasone (50 mcg per Inhale 1 [place] 1 Bottle 3 07/12/2017 Active actuation) nasal solution into both (FLONASE)Indications: nostrils once Allergic rhinitis due to daily. pollen, unspecified chronicity, unspecified seasonality fluocinonide 0.05 TOPICAL APPLY 3 TIMES A 5 08/30/19 18 Active (LIDEX) 0.05 % external DAY NEEDED solution dorzolamide-timolol INSTILL 1 DROP 4 04/01/2018 Active (COSOPT) 2-0.5 % INTO BOTH EYES ophthalmic solution TWICE A DAY aspirin (ECOTRIN) 81 mg Take 1 tablet 0 01/19/2019 Active enteric coated by mouth once tabletIndications: Type 2 daily with a diabetes mellitus with meal. microalbuminuria, without long-term current use of insulin (HC) CPAPIndications: YARA CPAP machine 1 Device 11 05/14/2019 Active (obstructive sleep apnea) for home use at pressure: 8.6 cm/H2O with epr of 3 , Heated humidifier x 1, Humidifier chamber x 1, Full face mask with cushion x 1, standard tubing x 1, Headgear x 1, Filters: Disposable x 1pk & Reusable x 1pk, Length of Need: 99 months, Frequency of use: Daily triamcinolone 0.025% 0 03/21/2021 Active topical (ARISTOCORT) 0.025 % cream simvastatin (ZOCOR) 20 mg Take 1 Tablet 90 Tablet 3 08/10/2021 Active tabletIndications: (20 mg) by Hyperlipidemia, mouth once unspecified daily in the hyperlipidemia type evening. 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, without Test 1 time/day long-term current use of insulin (HC) glimepiride (AMARYL) 4 mg TAKE 1 TABLET 90 Tablet 2 09/29/2021 Active tabletIndications: Type 2 DAILY WITH A diabetes mellitus with MEAL microalbuminuria, without long-term current use of insulin (HC) lisinopriL (PRINIVIL; TAKE 1 TABLET 90 Tablet 2 09/29/2021 Active ZESTRIL) 40 mg DAILY tabletIndications: Essential hypertension hydroCHLOROthiazide TAKE 1 TABLET 90 Tablet 2 10/27/2021 Active (HCTZ) 25 mg DAILY tabletIndications: Essential hypertension metFORMIN (GLUCOPHAGE) Take 1 Tablet 180 Tablet 3 11/21/2021 Active 1,000 mg (1,000 mg) by tabletIndications: Type 2 mouth in the diabetes mellitus with morning and 1 microalbuminuria, without Tablet (1,000 long-term current use of mg) in the insulin (HC) evening. Take with meals. methotrexate (RHEUMATREX) TAKE 10 TABLETS 0 11/15/19 22 Active 2.5 mg tablet BY MOUTH EVERY 7 DAYS ondansetron (ZOFRAN) 4 mg TAKE 1 TABLET 0 03/04/2022 Active tablet BY MOUTH EVERY 6 HOURS NEEDED FOR NAUSEA OR VOMITING oxyCODONE-acetaminophen Take by mouth 0 03/04/2022 Active (PERCOCET) 5-325 mg per every 6 hours tablet if needed. tamsulosin (FLOMAX) 0.4 TAKE 1 CAPSULE 0 03/04/2022 Active mg capsule BY MOUTH DAILY FOR URETERAL COLIC Active Problems Problem Noted Date YARA 09/23/2003 [...] Encounters Date Type Specialty Care Team Description 03/12/2022 Orders Only Fuad Leonard, 1 scan: (1-Ord) [facility] [place] 03/09/2022 Lab Requisition Julianne Goldman MD 03/07/2022 Office Visit Deanne Bennett Consti pation PA (Saturday/ y morning- started to loss en up ); Hospital F/U (1 0 ER [facility] ) 03/06/2022 Travel 03/06/2022 Nurse Triage Fuad Leonard Constip ation MD 03/06/2022 Telephone Fuad Leonard Medicat ion Management 03/04/2022 Orders Only Scanner 1 scan: (1-Ord) [place], [place] PELVIS, 022 02/26/2022 Office Visit Fuad Leonard Medicar e ANNUAL MD (subsequent) Vi sit (76 yr old male) 02/26/2022 Travel from Last 3 Months [...] Tobacco Use Types Packs/Day Years Used Date Smoking Tobacco: Former Pipe Smokeless Tobacco: Never Tobacco Cessation: Counseling Given: Yes Comments: pipe maybe once or twice a yea r Alcohol Use Standard Drinks/Week Comments Yes 14 (1 standard drink = 0.6 oz pure alcoh ol) couple drinks/beers a day Alcohol Habits Answer Date Recorded How often do you have a drink containing 4 or more times a w washoe 10/21/2018 alcohol? How many drinks containing alcohol do you have 1 or 2 10/21/2018 on a typical day when you are drinking? How often do you have six or more drinks on one Never 10/21/2018 occasion? Sex Assigned at Date Recorded Not on file Obstetrics History Last Filed Vital Signs Vital Sign Reading Time Taken Comments Blood Pressure 160/90 03/07/2022 8:51 AM CDT Pulse 86 03/07/2022 8:51 AM CDT Temperature 36.7 ??C (98 ??F) 03/07/2022 8:51 AM CDT Respiratory Rate 16 04/07/2018 1:43 PM [place] Oxygen Saturation 96% 03/07/2022 8:51 AM CDT Inhaled Oxygen Concentration - - Weight 126.6 kg (279 lb) 03/07/2022 8:51 AM CDT Height 179.8 cm (5' 10.79) 02/26/2022 1:20 PM CDT Body Mass Index 39.15 02/26/2022 1:20 PM CDT Plan of Treatment Upcoming Encounters Date Type Specialty Care Team Description 05/31/2022 Office Visit Fuad Leonard MD [address] [facility] [place] [address] (Wo rk) Health Maintenance Due Date Last Done Comments COVID-19 vaccine series (5 - 01/10/2022 11/15/2021, 021, Booster for Moderna series) 08/25/2020, Addition al history exists Influenza for age 65+ 01/25/2022 01/31/2021, 02/25/2020, 03/14/2019, Additional history exists BMI (ht and wt on same day) for 02/26/2023 02/26/2022, 09/0 11/2020, age 18+ 07/21/2020, Additional history exists Depression screening for age 12+ 02/26/2023 02/26/2022, 11/2020, 01/30/2021, Additional history exists Medicare Wellness for age 65+ 02/26/2023 02/26/2022, 2020, 01/11/2020, Additional history exists Tetanus booster 07/12/2025 07/12/2015, 01/02/2006 Lipids for age 45-75 02/26/2027 02/26/2022, 01/31/2021, 01/11/2020, Additional history exists Colonoscopy through age 75 03/08/2027 03/08/2022, 7, 02/05/2017, Additional history exists Pneumococcal series for age 65+ Completed 06/27/2015, 05/28, 12/01/2008 (Completed outside of [facility]), Additional history exists Tdap Completed 07/12/2015, 07/12/2015 Hepatitis C screening for age Completed 01/10/2017 18-79 AAA screening age 55-77 Completed 01/27/2019 Zoster (shingles) series for age Completed 03/28/2019, , 50+ 08/01/2011 Procedures Procedure Name Priority Date/Time Associated Diagnosis Comme nts LAB TRACKING EVENT Routine 03/08/2022 10:05 AM CDT PATH TISSUE EXAM Routine 03/08/2022 10:05 Results for this AM CDT procedure are i n the results section. COLONOSCOPY SCREENING Routine 03/08/2022 12:00 Screening for c olon Results for this AM CDT cancer procedure are i n the results section. SCAN-CT INTERPRETATION 03/04/2022 12:00 AM CDT URINE [...] insulin (HC) from Last 3 Months Results LAB TRACKING EVENT (03/08/2022 10:05 AM CDT) Specimen Anatomical Collection Method Collection Time Receive d Time (Source) Location / / Volume Laterality Other (Other) Client Collect / 03/08/2022 10:05 2021 1:24 Unknown AM CDT PM CDT Julianne Goldman MD LAB BILL ONLY Performing Organization Address City/State/ZIP Code Phon e Number [facility] [address] [place] [address] LABORATORY-CENTRAL 2000 LABORATORY PATH TISSUE EXAM (03/08/2022 10:05 AM CDT) Component Value Ref Test Analysis Performed At [facility] gist Range Method Time Signature Case Report Pathology Report ?Case: [id number] ? 03/13/2022 [facility] Authorizing Provider: ??Julianne Corbin MD ?Collected: ? 03/08/2022 1005 ? 9:55 AM HEALTH Ordering Location: ? [facility] CENTRAL LAB ?Received: ?03/09/2022 1557 ? CDT WILMA SOUZA Pathologist: ? Moe Rodriguez MD ? ENTRAL Specimen: ?Ascending Col on Polyp ? LABORATORY Final A) COLON, ASCENDING, POLYPECTOMY: 2021 [facility] Electronically Diagnosis 1. Tubular adenoma consisten t with advanced adenoma due to size (see comment) 9:55 AM HEALTH signed by 2. Negative for high grade dysplasia and malignancy CDT LABORATORY-C Moe Rodriguez 3. Per the colonoscopy report: PITA Peralta MD on ?? a. Polyp size: 14 mm LABOR ATORY 03/13/2022 at ?? b. Resection: Complete 9:55 AM ?? c. Retrieval: Complete Comment A) Advanced 03/13/2022 [facility] adenoma of the 9:55 AM [facility] colorectum is CDT LABORATORY-C defined by the [facility] [employer] LABORATORY of Gastroenterology ([facility] as an adenoma that is 1 cm or more in size, contains an appreciable villous component, or has high grade dysplasia (Reyna Kay [2008] Gastroenterology, PMID - [id number]). Patients with advanced adenomas are at an increased risk for synchronous and metachronous additional advanced adenomas. Appropriate follow-up is suggested. Clinical Mr. Blanton is a 76 y.o. undergoing surveillance colono scopy. 03/13/2022 [facility] Information 9:55 AM HEALTH Colonoscopy findings: Single polyp in the ascending colon, completely removed. Diverticulosis in the descending and sigmoid colon. Anal stricture on digital rectal exam. CDT LABORATORY-C [facility] LABORATORY Gross A) Received in formalin is a 26 x 8 x 1 mm aggregate of fernández mucosa. Submitted in one cassette. It is labeled with the patient's name and designated ascending colon polyp. 03/13/2022 [facility] Description 9:55 AM HEALTH Chantell Harden Jeff 03/09/2022 5:34 PM C DT LABORATORY-C [facility] LABORATORY Microscopic The final 03/13/2022 [facility] Description diagnosis is based 9:55 AM HEALTH on microscopic CDT LABORATORY-C examination of ENTRFL appropriate LABORATORY sections of all specimens. Additional 03/13/2022 [facility] Information Interpreted at [facility], Central Laboratory - [address], [place] [address] 9:55 AM [facility] CDT LABORATORY-C [facility] LABORATORY Specimen Anatomical Collection Method Collection Time Receive d Time (Source) Location / / Volume Laterality Other (Ascending 03/08/2022 10:05 022 3:57 Colon Polyp) AM CDT PM CDT Julianne Goldman MD PATHOLOGY/CYTOLOGY Performing Organization Address City/State/ZIP Code Phon e Number [facility] [address] [place] [address] LABORATORY-CENTRAL 1999 LABORATORY COLONOSCOPY SCREENING [[id number]] (03/08/2022 12:00 AM CDT) Narrative This result has an attachment that is no t available. uFad Leonard MD GI PROCEDURE ORD SCAN-CT INTERPRETATION (03/04/2022 12:00 AM CDT) Anatomical Region Laterality Modality Other Narrative This result has an attachment that is no t available. Scanner OTHER (ABNORMAL) URINE ALBUMIN TO CREATININE RATIO, RANDOM (02/26/2022 1:11 PM CDT) [facility] Method Time Signature ALB RAND URINE 251.9 mg/L 02/27/2022 [facility] 1:26 PM CDT LABORATORY-JAN[facility] TRAL LABORATORY CREATININE,URIN 1.03 g/L 02/27/2022 [facility] E 1:26 PM CDT LABORATORY-[facility] TRAL LABORATORY ALBUMIN TO 244.6 (H) <30.0 02/27/2022 [facility] CREATININE mg/g 1:26 PM CDT LABORATORY-J[facility] RATIO,RAND UR creat TRAL LABORATORY Specimen Anatomical Collection Method Collection Time Receive d Time (Source) Location / / Volume Laterality Urine URINE SPECIMEN / Non-Blood / 02/26/2022 1:11 PM 02/26 1:11 Unknown Unknown CDT PM CDT Narrative [facility] LABORATORY-CENTRAL LABORAT ORY - 02/27/2022 1:26 [...] Organization Address City/State/ZIP Code Phon e Number [facility] [address] [place] [address] LABORATORY-CENTRAL 1999 LABORATORY (ABNORMAL) HEMOGLOBIN A1C MONITORING (POCT) (02/26/2022 1:09 PM CDT) Analysis Performed At Path logist Time Signature HEMOGLOBIN A1C 6.7 (H) <=6.4 % 02/26/2022 [facility] MONITORING 1:19 PM CDT [place] (POCT) CLINIC Specimen Anatomical Collection Method / Collection Time Recei emperatriz Time (Source) Location / Volume Laterality Blood BLOOD SPECIMEN / Venipuncture / 02/26/2022 1:09 2021 1:10 Unknown Unknown PM CDT PM CDT Narrative [facility] - 2021 1:19 PM CDT ? (<=6.9%) [...] Address City/State/ZIP Code Phon e Number [facility] [address] [place] [address] (ABNORMAL) LIPID PANEL (02/26/2022 1:09 PM CDT) [facility] gist Method Time Signature CHOLESTEROL,TOTAL 128 100 - 199 02/27/2022 [facility] mg/dL 2:00 PM CDT LABORATORY-J[facility] TRAL LABORATORY TRIGLYCERIDES 185 (H) <150 02/27/2022 [facility] mg/dL 2:00 PM CDT LABORATORY-[facility] TRAL LABORATORY HDL CHOLESTEROL 45 >40 mg/dL 02/27/2022 [facility] 2:00 PM CDT LABORATORY-[facility] TRAL LABORATORY NON-HDL 83 <145 02/27/2022 [facility] CHOLESTEROL mg/dl 2:00 PM CDT LABORATORY-[facility] TRAL LABORATORY CHOL/HDL RATIO 2.84 <4.50 02/27/2022 [facility] 2:00 PM CDT LABORATORY-[facility] TRAL LABORATORY LDL CHOLESTEROL 46 <=130 02/27/2022 [facility] mg/dL 2:00 PM CDT LABORATORY-[facility] TRAL LABORATORY VLDL CHOLESTEROL 37 (H) <=30 02/27/2022 [facility] mg/dL 2:00 PM CDT LABORATORY-[facility] TRAL LABORATORY PROVIDER ORDERED RANDOM 02/27/2022 [facility] STATUS 2:00 PM CDT [facility] Specimen Anatomical Collection Method / Collection Time Recei emperatriz Time (Source) Location / Volume Laterality Blood BLOOD SPECIMEN / Venipuncture / 02/26/2022 1:09 2021 1:10 Unknown Unknown PM CDT PM CDT Fuad Leonard MD CHEMISTRY Performing Organization Address City/State/ZIP Code Phon e Number [facility] [address] [place] [address] LABORATORY-CENTRAL 2000 LABORATORY [facility] [address] [place] [address], CLINIC (ABNORMAL) BASIC METABOLIC PANEL (02/26/2022 1:09 [...] TRAL LABORATORY CREATININE 0.88 0.72 - 02/27/2022 [facility] 1.25 mg/dL 1:58 PM CDT LABORATORY-[facility] TRAL LABORATORY BUN/CREAT RATIO 15 10 - 20 02/27/2022 [facility] 1:58 PM CDT LABORATORY-[facility] TRAL LABORATORY eGFR 90 (L) >90 02/27/2022 [facility] mL/min/1.7 1:58 PM CDT LABORATORY-JANINE 3m2 TRAL [...] Organization Address City/State/ZIP Code Phon e Number [facility] [address] [place] [id number] LABORATORY-CENTRAL 2000 LABORATORY PSA TOTAL SCREEN (02/26/2022 1:09 PM CDT) athologist Signature PSA TOTAL 2.36 <4.00 02/27/2022 [facility] (SCREEN) ng/mL 2:21 PM CDT LABORATORY-CENT [facility] LABORATORY Specimen Anatomical Collection Method / Collection Time Recei emperatriz Time (Source) Location / Volume Laterality Blood BLOOD SPECIMEN / Venipuncture / 02/26/2022 1:09 2021 1:10 Unknown Unknown PM CDT PM CDT Narrative [facility] LABORATORY-CENTRAL LABORAT ORY - 02/27/2022 2:21 PM CDT The [employer] PSA assay is a Chemiluminescent Microparticle Immunoassay(CMIA). Assay values ob tained with different assay methods carlos ot be used interchangeably due to differences in assay methods and reagent specificity. Fuad Leonard MD LABORATORY Performing Organization Address [facility] Phon e Number [facility] [address] [place] [phone] LABORATORY-CENTRAL 2000 LABORATORY from Last 3 Months Insurance Payer Benefit Plan / Subscriber ID Effective Dates Phone Addre ss Type Group MEDICA MR MEDICA ADVANTAGE [id number] 2020-Present MEDIC A GOVERNMENT [place] [address] [address] [place] [phone] Care Teams Damage Prevention Coordinator Relationship Specialty Start Date End Date Fuad Leonard MD PCP - General Family Practice 01/04/17 [address] [facility] [place] [address]
[2022-05-08 13:42] LABS: Basophils Absolute Auto 0.02 K/uL (0.00-0.30); Basophils Percent Auto 0.4 % (0.0-3.0); Eosinophils Absolute Auto 0.13 K/uL (0.00-0.50); Eosinophils Percent Auto 2.9 % (0.0-7.0); Hematocrit 41.8 % (37.0-53.0); Hemoglobin* 14.5 gm/dL (13.5-17.5); Lymphocytes Percent Auto 23.7 % (20-44); Mean Corpuscular HGB Conc 35 gm/dL (32-36); Mean Corpuscular Hemoglobin 35 pg (26-34); Mean Corpuscular Volume 102 fL (80-100); Monocytes Absolute Auto 0.42 K/UL (0.00-0.90); Monocytes Percent Auto 9.3 % (0.0-11.0); Neutrophils Absolute Auto 2.87 K/uL (1.7-7.0); Neutrophils Percent Auto 63.7 % (42.0-72.0); Platelet Count* 257 K/uL (140-440); RDW Coefficient of Variation % 13.8 % (11.5-15.5); White Blood Count* 4.51 K/uL (4.50-11.00)
[2022-05-08 13:53] LABS: Slide Review Reflex No
[2022-05-08 17:31] LABS: Albumin* 4.4 g/dL (3.3-5.0)
[2022-05-08 17:32] LABS: Chloride* 102 mmol/L (96-114); Potassium* 4.2 mmol/L (3.6-5.1); Sodium* 137 mmol/L (135-149)
[2022-05-08 17:34] LABS: Alkaline Phosphatase* 51 U/L (40-150); Aspartate Amino Transferase* 46 U/L (12-35); Bilirubin Total* 1.1 mg/dL (0.1-1.5); Blood Urea Nitrogen* 12 mg/dL (7-30); Carbon Dioxide* 26 mmol/L (20-32); Creatinine* 0.7 mg/dL (0.5-1.5); Estimated Glomerular Filt Rate 96 ml/min; Total Protein* 7.2 g/dL (6.0-8.3)
[2022-05-08 17:35] LABS: Alanine Aminotransferase* 43 U/L (4-50); Calcium* 9.7 mg/dL (8.4-10.6); Glucose* 148 mg/dL (60-115)
== END 2022-05-08 08:38 | disposition home or self-care (01) ==
LOC: FRMREF 13:27
PROVIDERS: PCP Surgery; Visit Provider Dermatology
DX: Z79.631 Long term (current) use of antimetabolite agent (principal)
CPT/HCPCS: 80053; 85025

== ENCOUNTER 2022-05-23 10:25 | Emergency (ER) | payer OTHER, SELFPAY ==
[2022-05-23] VITALS (8 sets, daily range): BP systolic 136–158; BP diastolic 92–107; PULSE 73–82; RESP 20; TEMP 36.5; O2SAT 92–97; BMI 38.4
--- NOTE | 2022-05-23 12:08 | ED.GENADULT ---
HPI - General Adult General Chief complaint: Dizziness/Vertigo Stated complaint: lightheaded,elevated bp Time Seen by Provider: 05/23/22 11:10 History of Present Illness HPI narrative: 76-year-old man presenting to the emergency department with complaint of lightheadedness or maybe more of a feeling that he describes as floating upon waking later this morning. He did have a couple alcoholic drinks, high balls, last night but this is not particularly out of the ordinary at least in volume. He has not had any chest pain or nausea or shortness of breath. He does have diabetes and blood sugars are not checked every day but yesterday or couple days ago it was 155. No loss of vision. No headache. No focal weakness. Related Data Home Medications Medication Instructions Recorded Confirmed aspirin 81 mg tablet,delayed 81 mg PO QDAY 02/06/22 03/04/22 release cetirizine 10 mg tablet (Zyrtec) 10 mg PO QDAY PRN 02/06/22 03/04/22 fluocinonide 0.05 % topical cream 1 applic topical BID 02/06/22 03/04/22 fluticasone propionate 50 1 spray intranasal QDAY 02/06/22 03/04/22 mcg/actuation nasal spray,suspension (Allergy Relief (fluticasone)) glimepiride 4 mg tablet 4 mg PO QAM 02/06/22 03/04/22 hydrochlorothiazide 25 mg tablet 25 mg PO QDAY 02/06/22 03/04/22 lansoprazole 15 mg capsule,delayed 15 mg PO QDAY 02/06/22 03/04/22 release latanoprost 0.005 % eye drops 1 drp ophthalmic (eye) QDAY 02/06/22 02/06/22 lisinopril 40 mg tablet 40 mg PO QDAY 02/06/22 03/04/22 metformin 1,000 mg tablet 1,000 mg PO BID 02/06/22 03/04/22 simvastatin 20 mg tablet 20 mg PO QDAY 02/06/22 03/04/22 timolol 0.25 % eye drops 1 drp ophthalmic (eye) QDAY 02/06/22 03/04/22 zinc acetate 50 mg (zinc) capsule 50 mg PO QDAY 02/06/22 03/04/22 (Galzin) Previous Rx's Medication Instructions Recorded ondansetron HCl 4 mg tablet 4 mg PO Q6H PRN nausea and 03/04/22 vomiting #12 tabs oxycodone-acetaminophen 5 mg-325 1 - 2 tab PO Q6H PRN pain #12 tabs 03/04/22 mg tablet (Percocet) tamsulosin 0.4 mg capsule (Flomax) 0.4 mg PO DAILY ureteral colic #12 03/04/22 caps methotrexate sodium 2.5 mg tablet 20 mg PO QWEEK #32 tabs 05/10/22 Allergies Allergy/AdvReac Type Severity Reaction Status Date / Time No Known Drug Allergies Allergy Verified 02/06/22 11:24 Review of Systems Status of ROS: Reports: 10 or more systems reviewed and unremarkable except as noted in History and below [facility] Medical History Adenomatous colon polyp Benign prostatic hyperplasia without lower urinary tract symptoms Diastasis recti Eczema Essential (primary) hypertension Hyperlipidemia Methotrexate, penitentiary, current use Obesity YARA (obstructive sleep apnea) Type 2 diabetes mellitus Unspecified glaucoma Venous insufficiency (chronic) (peripheral) Social History Smoking Status: Never smoker Do you use any of these nicotine containing products: None Second hand tobacco smoke exposure: No How often do you have a drink containing alcohol: 4 or more times a week How many standard drinks containing alcohol do you have on a typical day: 3 or 4 How often do you have six or more drinks on one occasion: Never AUDIT-C Alcohol total score: 5 Non-prescribed substance use: denies use and marijuana (any form) Non-prescribed substance use details: cbd last night service: No Exam Narrative: Exam Narrative: Pleasant. NAD. Skin is warm and dry. Moving all extremities without difficulty with good strength. No loss of sensation generally. Cranial nerves 2-12 look to be intact. No nystagmus. Lungs are clear. Heart is in a regular rhythm without apparent murmur rub or gallop though a little distant. Abdomen is overweight soft nontender. Eyes are injected oropharynx is moist. Const: Vital Signs, click to edit/add: Vital Signs - 24 hr 05/23/22 10:36 05/23/22 11:31 05/23/22 11:34 Temperature 97.7 F Pulse Rate [Pulse Oximeter] 79 Pulse Rate [orthos tatic lying Left P ulse Oximeter] 82 Pulse Rate [orthos tatic sitting Left Pulse Oximeter] 82 Pulse Rate [orthos tatic standing Pul se Oximeter] 81 Respiratory Rate 20 Blood Pressure [Le ft Upper Arm] 158/104 H Blood Pressure [or thostatic lying Le ft Arm] 136/99 H Blood Pressure [or thostatic sitting Left Arm] 148/104 H Blood Pressure [or thostatic standing Left Arm] 156/102 H Pulse Oximetry 97 94 Oxygen Delivery Me thod Room Air 05/23/22 11:00 05/23/22 11:30 05/23/22 12:00 Temperature Pulse Rate [Pulse Oximeter] 75 79 80 Pulse Rate [orthos tatic lying Left P ulse Oximeter] Pulse Rate [orthos tatic sitting Left Pulse Oximeter] Pulse Rate [orthos tatic standing Pul se Oximeter] Respiratory Rate Blood Pressure [Le ft Upper Arm] 140/92 H 149/107 H 151/106 H Blood Pressure [or thostatic lying Le ft Arm] Blood Pressure [or thostatic sitting Left Arm] Blood Pressure [or thostatic standing Left Arm] Pulse Oximetry 95 93 92 Oxygen Delivery Me thod Room Air Room Air Room Air 05/23/22 12:30 05/23/22 13:00 Temperature Pulse Rate [Pulse Oximeter] 74 73 Pulse Rate [orthos tatic lying Left P ulse Oximeter] Pulse Rate [orthos tatic sitting Left Pulse Oximeter] Pulse Rate [orthos tatic standing Pul se Oximeter] Respiratory Rate Blood Pressure [Le ft Upper Arm] 142/96 H 143/98 H Blood Pressure [or thostatic lying Le ft Arm] Blood Pressure [or thostatic sitting Left Arm] Blood Pressure [or thostatic standing Left Arm] Pulse Oximetry 92 93 Oxygen Delivery Me thod Room Air Room Air Documenting provider has reviewed patient's vital signs: yes Course Vital Signs Vital signs: Initial Vital Signs Temperature 97.7 F 05/23/22 10:36 Temperature Source Temporal Artery Scan 05/23/22 10:36 Pulse Rate 79 05/23/22 10:36 Pulse Rhythm 05/23/22 10:36 Respiratory Rate 20 05/23/22 10:36 Blood Pressure 158/104 H 05/23/22 10:36 Blood Pressure Mean 122 05/23/22 10:36 Blood Pressure Position Supine 05/23/22 10:36 Pulse Oximetry 97 05/23/22 10:36 Oxygen Delivery Method 05/23/22 10:36 Vital Signs Temperature 97.7 F 05/23/22 10:36 Pulse Rate 79 05/23/22 10:36 Respiratory Rate 20 05/23/22 10:36 Blood Pressure 158/104 H 05/23/22 10:36 Pulse Oximetry 97 05/23/22 10:36 Oxygen Delivery Method 05/23/22 10:36 Temperature 97.7 F 05/23/22 10:36 Pulse Rate 73 05/23/22 13:00 Respiratory Rate 20 05/23/22 10:36 Blood Pressure 143/98 H 05/23/22 13:00 Pulse Oximetry 93 05/23/22 13:00 Oxygen Delivery Method 05/23/22 13:00 Medical Decision Making MDM Narrative Medical decision making narrative: EKG initially done reviewed by me shows a sinus rhythm at a rate of 86. There is a PVC or 2. Otherwise no ischemic changes noted. Normal QTc. Orthostatics were positive with 20 point systolic drop. Initiating IV fluids. Overall improved. Seems little less flushed. Eyes less injected. Seems to have better energy. There were no events on monitor. Blood pressure settles a little. Labs are reassuring. Lab Data Lab results reviewed: Yes I reviewed the patient's lab results Labs: Lab Results 05/23/22 05/23/22 05/23/22 Range/Units 12:02 12:02 12:02 WBC (4.50-11.00) K/uL RBC (4.30-5.90) m/uL Hgb (13.5-17.5) gm/dL Hct (37.0-53.0) % MCV (80-100) fL MCH (26-34) pg MCHC (32-36) gm/dL RDW Coeff of Crissy (11.5-15.5) % Plt Count (140-440) K/uL Neut % (Auto) (42.0-72.0) % Lymph % (Auto) (20-44) % [place] % (Auto) (0.0-11.0) % Eos % (Auto) (0.0-7.0) % Baso % (Auto) (0.0-3.0) % Neut # (Auto) (1.7-7.0) K/uL Lymph # (Auto) (0.90-2.90) K/uL [place] # (Auto) (0.00-0.90) K/UL Eos # (Auto) (0.00-0.50) K/uL Baso # (Auto) (0.00-0.30) K/uL Sodium 137 (135-149) mmol/L Potassium 4.0 (3.6-5.1) mmol/L Chloride 104 (96-114) mmol/L Carbon Dioxide 26 (20-32) mmol/L BUN 14 (7-30) mg/dL Creatinine 0.7 (0.5-1.5) mg/dL Estimated Creat Clear 67.98 Estimated GFR 96 ml/min Glucose 180 H (60-115) mg/dL Calcium 9.6 (8.4-10.6) mg/dL Troponin I < 0.01 L (0.01-0.04) ng/mL C-Reactive Protein < 0.5 L (0.5-1.0) mg/dL NT-Pro-B Natriuret Pep 42 pg/mL SARS-CoV-2 (PCR) (Negative) Influenza Type A (PCR) (Negative) Influenza Type B (PCR) (Negative) POC Troponin I 0.01 (0.01-0.04) ng/ml 05/23/22 05/23/22 Range/Units 12:02 12:05 WBC 4.85 (4.50-11.00) K/uL RBC 4.11 L (4.30-5.90) m/uL Hgb 14.6 (13.5-17.5) gm/dL Hct 42.2 (37.0-53.0) % MCV 103 H (80-100) fL MCH 36 H (26-34) pg MCHC 35 (32-36) gm/dL RDW Coeff of Crissy 13.1 (11.5-15.5) % Plt Count 256 (140-440) K/uL Neut % (Auto) 66.8 (42.0-72.0) % Lymph % (Auto) 18.4 L (20-44) % [place] % (Auto) 10.3 (0.0-11.0) % Eos % (Auto) 4.1 (0.0-7.0) % Baso % (Auto) 0.4 (0.0-3.0) % Neut # (Auto) 3.24 (1.7-7.0) K/uL Lymph # (Auto) 0.90 (0.90-2.90) K/uL [place] # (Auto) 0.50 (0.00-0.90) K/UL Eos # (Auto) 0.20 (0.00-0.50) K/uL Baso # (Auto) 0.02 (0.00-0.30) K/uL Sodium (135-149) mmol/L Potassium (3.6-5.1) mmol/L Chloride (96-114) mmol/L Carbon Dioxide (20-32) mmol/L BUN (7-30) mg/dL Creatinine (0.5-1.5) mg/dL Estimated Creat Clear Estimated GFR ml/min Glucose (60-115) mg/dL Calcium (8.4-10.6) mg/dL Troponin I (0.01-0.04) ng/mL C-Reactive Protein (0.5-1.0) mg/dL NT-Pro-B Natriuret Pep pg/mL SARS-CoV-2 (PCR) Negative SARS-CoV-2 (Negative) Influenza Type A (PCR) Negative PCR FLU A (Negative) Influenza Type B (PCR) Negative PCR FLU B (Negative) POC Troponin I (0.01-0.04) ng/ml Discharge Plan Discharge Clinical Impression: Malaise, Premature ventricular contraction, High blood pressure Patient Disposition: Home w/ Parent or Adult Condition: Stable Additional Instructions: Stay well-hydrated. I would continue to check your blood pressures after a period of rest once and maybe repeating daily or every other day over a period of week to 10 days and follow-up with those numbers to your primary care provider. Return otherwise for persistent and worsening lightheadedness, increasing shortness of breath, chest pain, severe headache. Prescriptions: No Action lisinopril 40 mg tablet 40 mg PO QDAY hydrochlorothiazide 25 mg tablet 25 mg PO QDAY simvastatin 20 mg tablet 20 mg PO QDAY cetirizine [Zyrtec] 10 mg tablet 10 mg PO QDAY PRN fluticasone propionate [Allergy Relief (fluticasone)] 50 mcg/actuation spray,suspension 1 spray intranasal QDAY Rx Instructions: administer into each nostril fluocinonide 0.05 % cream 1 applic topical BID aspirin 81 mg tablet,delayed release (DR/EC) 81 mg PO QDAY metformin 1,000 mg tablet 1,000 mg PO BID lansoprazole 15 mg capsule,delayed release(DR/EC) 15 mg PO QDAY latanoprost 0.005 % drops 1 drp ophthalmic (eye) QDAY timolol 0.25 % drops 1 drp ophthalmic (eye) QDAY glimepiride 4 mg tablet 4 mg PO QAM Rx Instructions: administer with breakfast Galzin 50 mg (zinc) capsule 50 mg PO QDAY oxycodone-acetaminophen [Percocet] 5-325 mg tablet 1 - 2 tab PO Q6H PRN (Reason: pain) Qty: 12 0RF tamsulosin [Flomax] 0.4 mg capsule 0.4 mg PO DAILY Qty: 12 0RF ondansetron HCl 4 mg tablet 4 mg PO Q6H PRN (Reason: nausea and vomiting) Qty: 12 0RF methotrexate sodium 2.5 mg tablet 20 mg PO QWEEK Qty: 32 2RF Rx Instructions: Take 8 tabs one day per week. Follow Up/Referrals: Fuad Leonard MD [Primary Care Provider] - Stand Alone Forms: [facility] Info Instructions
[2022-05-23] MEDS: 0.9 % SODIUM CHLORIDE 1000 ml 1,000 ML IV (12:15)
[2022-05-23 12:36] LABS: Chloride* 104 mmol/L (96-114)
[2022-05-23 12:37] LABS: Sodium* 137 mmol/L (135-149)
[2022-05-23 12:39] LABS: Creatinine* 0.7 mg/dL (0.5-1.5); Est. Creatinine Clearance* 67.98; Estimated Glomerular Filt Rate 96 ml/min
[2022-05-23 12:40] LABS: Blood Urea Nitrogen* 14 mg/dL (7-30); Calcium* 9.6 mg/dL (8.4-10.6); Carbon Dioxide* 26 mmol/L (20-32); Glucose* 180 mg/dL (60-115)
[2022-05-23 12:52] LABS: C Reactive Protein* < 0.5 mg/dL (0.5-1.0); NT Pro B Type NatriureticPept* 42 pg/mL; Troponin I* < 0.01 ng/mL (0.01-0.04)
[2022-05-23 13:12] LABS: Troponin, Point-of-Care* 0.01 ng/ml (0.01-0.04)
[2022-05-23 13:16] LABS: PCR FLU A Negative PCR FLU A (Negative); PCR FLU B Negative PCR FLU B (Negative)
[2022-05-23 13:20] LABS: SARS PCR* Negative SARS-CoV-2 (Negative)
[2022-05-23 13:31] LABS: Basophils Absolute Auto 0.02 K/uL (0.00-0.30); Basophils Percent Auto 0.4 % (0.0-3.0); Eosinophils Percent Auto 4.1 % (0.0-7.0); Hematocrit 42.2 % (37.0-53.0); Hemoglobin* 14.6 gm/dL (13.5-17.5); Lymphocytes Percent Auto 18.4 % (20-44); Mean Corpuscular HGB Conc 35 gm/dL (32-36); Mean Corpuscular Hemoglobin 36 pg (26-34); Mean Corpuscular Volume 103 fL (80-100); Monocytes Percent Auto 10.3 % (0.0-11.0); Neutrophils Absolute Auto 3.24 K/uL (1.7-7.0); Neutrophils Percent Auto 66.8 % (42.0-72.0); Platelet Count* 256 K/uL (140-440); RDW Coefficient of Variation % 13.1 % (11.5-15.5); Red Blood Count 4.11 m/uL (4.30-5.90); Slide Review Reflex No; White Blood Count* 4.85 K/uL (4.50-11.00)
== END 2022-05-23 13:55 | disposition home or self-care (01) ==
PROVIDERS: Emergency Provider Family Medicine; PCP Surgery
DX: I49.3 Ventricular premature depolarization (principal); I10 Essential (primary) hypertension; R53.81 Other malaise
CPT/HCPCS: 36415; 80048; 83880; 84484; 85025; 86140; 87631; 93005; 94761; 96360; 99284; J7030

== ENCOUNTER 2022-07-31 11:24 | Outpatient (CLI) | payer OTHER, SELFPAY | END 2022-07-31 11:25 | disposition home or self-care (01) | PROVIDERS: PCP Surgery; Visit Provider Dermatology | DX: L30.9 Dermatitis, unspecified (principal); I10 Essential (primary) hypertension; E66.9 Obesity, unspecified; E11.9 Type 2 diabetes mellitus without complications | CPT/HCPCS: 80076 ==

== ENCOUNTER 2022-12-15 10:26 | Outpatient (CLI) | payer OTHER, SELFPAY | END 2022-12-15 10:27 | disposition home or self-care (01) | LOC: AMB 12-24 19:15 | PROVIDERS: PCP Surgery; Visit Provider Family Medicine | DX: I46.9 Cardiac arrest, cause unspecified (principal) | CPT/HCPCS: A0429 ==